=== PATIENT | female | born 1945 | race Caucasian/White ===

== ENCOUNTER 2023-08-21 17:40 | Emergency (ER) | payer OTHER, MEDICAID ==
[~2023-08-21] VITALS: Ht 165.1 cm; Wt 68.0 kg
[2023-08-21 18:03] VITALS: BP 152/64; PULSE 65; RESP 18; TEMP 98.9; O2SAT 96
[2023-08-21 18:38] LABS: BASOPHILS # (AUTO) 0.1 K/uL (0.00-0.22); BASOPHILS % (AUTO) 1.3 % (0.0-2.0); EOSINOPHILS # (AUTO) 0.3 K/uL (0-0.4); EOSINOPHILS % (AUTO) 4.5 % (0.0-4.0); HEMATOCRIT 39.5 % (36-48); HEMOGLOBIN 13.4 g/dL (12.0-16.0); LYMPHOCYTES # (AUTO) 0.7 K/uL (2.5-16.5); LYMPHOCYTES % (AUTO) 10.3 % (20.5-51.1); MEAN CORPUSCULAR HEMOGLOBIN 29 pg (27-31); MEAN CORPUSCULAR HGB CONC 34 g/dL (33-37); MEAN CORPUSCULAR VOLUME 85.9 fL (80-94); MONOCYTES # (AUTO) 0.6 K/uL (0.8-1.0); MONOCYTES % (AUTO) 8.1 % (1.7-9.3); NEUTROPHILS # (AUTO) 5.3 K/uL (1.8-7.7); NEUTROPHILS % (AUTO) 75.8 % (42.2-75.2); PLATELET COUNT (AUTO) 261 K/uL (140-450); RED CELL DISTRIBUTION WIDTH 14.2 % (11.6-13.7); WHITE BLOOD COUNT (AUTO) 6.9 K/uL (4.8-10.8)
[2023-08-21 18:49] LABS: CALCIUM 9.5 mg/dL (8.5-10.1); CARBON DIOXIDE 30.8 mmol/L (21-32); CHLORIDE 104 mmol/L (98-107); CREATININE 0.9 mg/dL (0.6-1.3); GLUCOSE 94 mg/dL (74-106); POTASSIUM 3.8 mmol/L (3.5-5.1); SODIUM SERUM 141 mmol/L (136-145); UREA NITROGEN, BLOOD 18 mg/dL (7-18)
[2023-08-21 19:00] LABS: ALBUMIN 3.9 g/dL (3.4-5.0); BILIRUBIN,DIRECT 0.1 mg/dL (0.0-0.3); TOTAL BILIRUBIN 0.4 mg/dL (0.0-1.0); TOTAL PROTEIN, SERUM 6.2 g/dL (6.4-8.2)
[2023-08-21] MEDS ORDERED: KETOROLAC 30 MG/ML VIAL ONE (19:25)
[2023-08-21] MEDS: KETOROLAC 30 MG/ML VIAL IVP ONE (19:29)
[2023-08-21 19:49] VITALS: O2SAT 96
[2023-08-21 19:58] VITALS: BP 155/63; PULSE 58; RESP 16; TEMP 97.8; O2SAT 98
[2023-08-21] MEDS ORDERED: TRAM-748 PO (21:16)
== END 2023-08-21 21:27 | disposition home or self-care (01) ==
LOC: MED 17:40
DX: S43.492A Other sprain of left shoulder joint, initial encounter (principal); S83.8X2A Sprain of other specified parts of left knee, initial encounter; S05.12XA Contusion of eyeball and orbital tissues, left eye, initial encounter; S09.90XA Unspecified injury of head, initial encounter; Z79.899 Other long term (current) drug therapy; W22.8XXA Striking against or struck by other objects, initial encounter; Y93.89 Activity, other specified; Y92.89 Other specified places as the place of occurrence of the external cause; Y99.8 Other external cause status
CPT/HCPCS: 36415; 70450; 70486; 71101; 73030; 73562; 80048; 80076; 85025; 96374; 99285; J1885